=== PATIENT | male | born 1985 | race Caucasian/White ===

== ENCOUNTER 2016-05-25 19:04 | Emergency (ER) | payer SELFPAY ==
[2016-05-25 19:12] VITALS: TEMP 98.3
[2016-05-25 19:14] VITALS: BMI 22.3
--- NOTE | 2016-05-25 21:09 | EDPRACDOC ---
- General Information Chief Complaint: Toothache Stated Complaint: TOOTHACHE Time Seen by Provider: 05/25/16 21:04 Information Source: Patient Mode Of Arrival: Car Home Medications: Home Medications Amoxicillin Trihydrate [Amoxicillin] 500 mg PO TID #21 tab 05/25/16 Hydrocodone Bit/Acetaminophen [Hydrocodon-Acetaminophen 5-325] 1 tab PO Q6 PRN # 15 tab 05/25/16 Allergies/Adverse Reactions: Allergies Allergy/AdvReac Type Severity Reaction Status Date / Time No Known Allergies Allergy Verified 05/25/16 19:11 - History of Present Illness Onset: Thursday HPI: PT COMPLAINS OF LEFT LOWER TOOTH PAIN X 2 DAYS, WORSE OVER LAST 24 HOURS, NO N/V , NO FEVER OR CHILLS, USING TYLENOL WITHOUT RELIEF. Pain Severity: Reports: Severe Relevant History of: Reports: None Modifying Factors: improves with: Heat, Cold, Chewing. worse with: Anagelsics Associated Signs and Symptoms: Denies: Fever, Chills, Earache, Sore Throat - Treatment Prior to ED Arrival Reported Medications/Treatment [employer] Ibuprofen/Acetaminophen (Dose/ Tylenol 1000 mg @ 1200 Time) Medications [employer] (Medication/ see above Dose/Time) ED Past Medical History - History Reviewed Yes Nurses notes reviewed and agree except as marked No Past Medical History: Yes Patient has no past medical history - Social Medical History Smoking Status: Heavy tobacco smoker (5 or more cigarettes/day or daily pipe/ cigar) EDM Review of Systems - Review of Systems Constitutional: negative: Chills, Fever Eyes: negative: Blurred Vision, Double Vision Ears: negative: Drainage Throat: negative: Pain Nose: negative: Congestion, Discharge Mouth: Tooth Pain Gastrointestinal: negative: Nausea, Vomiting Neurological: negative: Headache - Physical Exam Constitutional: Alert (Awake), No apparent distress Oriented to: Time, Person, Place Last recorded Vital Signs: Last Vital Signs Temp 98.3 F 05/25/16 19:11 Pulse 113 05/25/16 19:11 Resp 20 05/25/16 19:11 BP 144/74 05/25/16 19:11 Pulse Ox 98 05/25/16 19:11 Oxygen Pulse Oxygen Saturation 98 O2 Device Oxygen Flow Rate Fraction of Inspired Oxygen ( FIO2) - HEENT Head: Normal ( normocephalic) Eye Exam: Normal (PERRL, EOMI, Sclera white) Oropharynx: Normal (Pharynx:Moist without exudate,Gums-no swelling) Tympanic Membrane: Normal ENT EAC: Normal TMJ: Normal Nose: No Symptoms Reported (septum midline) Neck: Normal (FROM, trachea at midline) - Respiratory/Cardiovascular Respiratory: Normal - CTA (BBS clear to auscultation without adventitious sounds ) Cardiovascular: Normal (RRR without murmur, gallop or rub) - Integumentary Skin: Normal, Warm, Dry Lymphatics: Normal (no adenopathy) - Neurologic Memory Impaired: Normal Motor Function: Normal (Normal tone, Pulses 2+ No cyanosis or edema, FROM) Cranial Nerve: Normal (CN II-X11 intact sensation, strength 5/5) Cerebellar: Normal Mood Description: Normal Perception: Normal ED Tooth Problem Exam - HEENT Face: Normal Teeth: Left: Molar-3 Lower (TENDER, CARIOUS, BROKEN) Gingiva: Tender, Swelling. negative: Red, Pointing, Draining, Necrotizing Palate: Normal Mouth Range of Motion: Normal Sinuses: Normal Oropharynx: Normal Neck: Normal - Differential Diagnosis Periapical Abscess, Periodontal Abscess Decision Time to Discharge: 21:09 - Departure Disposition: Home Condition: Stable Final Diagnosis: Dental abscess (peridontal) Instructions: Dental Abscess (ED) Education/Counseling Given To: Patient Education/Counseling Given Regarding: Diagnosis, Treatment, Prognosis, Follow Up Referrals: Lydia Fitzgerald MD [Staff Physician] - One Week Prescriptions: Amoxicillin Trihydrate [Amoxicillin] 500 mg PO TID #21 tab Hydrocodone Bit/Acetaminophen [Hydrocodon-Acetaminophen 5-325] 1 tab PO Q6 PRN # 15 tab PRN Reason: Pain Additional Instructions: Tooth Problem: You must follow up with a dentist as soon as possible, you may contact the [facility] at [phone] for assistance.
[2016-05-25] MEDS ORDERED: HYDROCODONE 5 MG/ACETAMIN 325 MG TAB PO ONE (21:16)
[2016-05-25] MEDS ORDERED: AMOXICILLIN 500 MG CAP PO ONE (21:16)
[2016-05-25 21:27] VITALS: BP 140/68; PULSE 69
== END 2016-05-25 21:19 | disposition home or self-care (01) ==
LOC: EDMC 19:04
DX: K04.7 Periapical abscess without sinus (principal)
CPT/HCPCS: 99283; J3490